=== PATIENT | female | born 1995 | race Caucasian/White ===

== ENCOUNTER 2018-04-29 07:46 | Emergency (ER) | payer MEDICAID, OTHER ==
[2018-04-29 08:21] LABS: APPEARANCE,URINE Turbid (CLEAR); BILIRUBIN,URINE Small (NEGATIVE); COLOR,URINE Red (YELLOW); GLUCOSE, URINE (UA) Negative (NEGATIVE); KETONES,URINE Negative (NEGATIVE); LEUKOCYTE ESTERASE ,URINE Large (NEGATIVE); NITRATE,URINE Positive (NEGATIVE); OCCULT BLOOD,URINE Moderate (NEGATIVE); PH,URINE 6.5 (5.0-8.0); PROTEIN,URINE POS 2+ (NEGATIVE); UROBILINOGEN,URINE 0.2 mg/dL (0.2-1.0)
[2018-04-29 08:30] LABS: HCG,QUAL RESULT NEGATIVE (NEGATIVE)
[2018-04-29 08:33] LABS: BACTERIA,URINE Rare /HPF (None Seen); RBC,URINE TNTC /HPF (0-1); SQUAMOUS EPITHELIAL CELL,UR Few /HPF (0-2)
[2018-04-29 08:34] LABS: BASOPHILS % (AUTO) 0.5 % (0.0-5.0); EOSINOPHILS % (AUTO) 0.9 % (0.0-8.0); HEMATOCRIT 40.7 % (36-48); LYMPHOCYTES % (AUTO) 42.7 % (21.0-51.0); MEAN CORPUSCULAR HEMOGLOBIN 32.5 pg (27.0-33.0); MEAN CORPUSCULAR HGB CONC 35.1 g/dL (32.0-36.0); MEAN CORPUSCULAR VOLUME 92.6 fL (79-99); MONOCYTES % (AUTO) 7.3 % (3.0-13.0); NEUTROPHILS % (AUTO) 48.6 % (40.0-77.0); PLATELET COUNT (AUTO) 277 K/uL (130-400); RED CELL DISTRIBUTION WIDTH 13.2 % (11.0-15.5); WHITE BLOOD COUNT (AUTO) 4.8 K/uL (4.8-10.8)
[2018-04-29] MEDS ORDERED: KETOROLAC TROMETHAMINE 30MG/ML ONE (08:44)
[2018-04-29 08:45] LABS: CREATININE 0.8 mg/dL (0.5-1.5); POTASSIUM 3.4 mmol/L (3.5-5.1)
[2018-04-29 08:49] LABS: ALBUMIN 4.3 g/dL (3.5-5.0); BILIRUBIN,TOTAL 0.8 mg/dL (0.2-1.0); TOTAL PROTEIN, SERUM 7.8 g/dL (6.0-8.3)
== END 2018-04-29 10:24 | disposition home or self-care (01) ==
LOC: EDH 07:46
DX: O72.1 Other immediate postpartum hemorrhage (principal); M54.5 Low back pain; R10.2 Pelvic and perineal pain
CPT/HCPCS: 36415; 76856; 80053; 81001; 81025; 85025; 87486; 87797; 93970; 96374; 99285; J1885

== ENCOUNTER 2020-03-04 13:08 | Emergency (ER) | payer OTHER ==
[2020-03-04 14:10] LABS: APPEARANCE,URINE TURBID (CLEAR); BILIRUBIN,URINE NEGATIVE (NEGATIVE); COLOR,URINE YELLOW (YELLOW); GLUCOSE, URINE (UA) NEGATIVE (NEGATIVE); KETONES,URINE NEGATIVE (NEGATIVE); LEUKOCYTE ESTERASE ,URINE LARGE (NEGATIVE); NITRATE,URINE NEGATIVE (NEGATIVE); OCCULT BLOOD,URINE MODERATE (NEGATIVE); PH,URINE 6.5 (5.0-8.0); PROTEIN,URINE TRACE mg/dL (NEGATIVE); UROBILINOGEN,URINE 0.2 mg/dL (0.2-1.0)
[2020-03-04 14:25] LABS: BACTERIA,URINE Moderate /HPF (None Seen); MUCUS,URINE Few LPF (None Seen); SQUAMOUS EPITHELIAL CELL,UR Few /HPF (0-2)
[2020-03-04] MEDS ORDERED: CEFTRIAXONE SODIUM 1 GM ONE (14:53)
[2020-03-04] MEDS ORDERED: LIDOCAINE HCL-MPF 1% 2ML VIAL ONE (14:54)
== END 2020-03-04 15:24 | disposition home or self-care (01) ==
LOC: EDH 13:08
DX: N39.0 Urinary tract infection, site not specified (principal)
CPT/HCPCS: 81001; 81025; 87088; 96372; 99283; J0696; J3490

== ENCOUNTER 2024-12-31 07:14 | Emergency (ER) | payer MEDICAID ==
[~2024-12-31] VITALS: Ht 160 cm; Wt 67.1 kg
[~2024-12-31 07:14] MED LIST: BENZ200C53 PO
[2024-12-31] MEDS: ORPHENADRINE 60MG/2ML IM ONE (08:00)
[2024-12-31] MEDS: ketOROlac 30MG VIAL (30MG/ML) IM ONE (08:00)
--- NOTE | 2024-12-31 08:25 | HMCIMG ---
Exam Type: CERV SPINE 2-3VWS Clinical Information: pain Comparison: None FINDINGS: C1 through the top of T1 are seen on the lateral view. The prevertebral soft tissues are normal. The vertebral bodies are well-aligned and without fracture. The disc spaces are normal as is the distance between the arch of C1 and the dens. The spinolaminar line is smooth and the spinous process tips intact. The AP view of the cervical spine is unremarkable. IMPRESSION: NEGATIVE CERVICAL SPINE SERIES.
--- NOTE | 2024-12-31 08:28 | ERN ---
General Chief Complaint: Neck Pain Stated Complaint: LEFT SIDE NECK PAIN Time Seen by MD: 07:15 Source: patient History of Present Illness Initial Comments Patient is a 29-year-old female coming in to be evaluated for left-sided neck pain. Patient states he woke up with this intense left-sided neck pain. She states that the pain is exacerbated with rotation of the head. Allergies: Coded Allergies: morphine (Unverified Allergy, Severe, 12/31/24) HHIVES No Known Allergies (Verified Allergy, Unknown, 04/23/20) Home Meds Active Scripts Benzonatate (Benzonatate) 200 Mg Capsule, 200 MG PO every 6 hours for cough for 7 Days, #40 CAP Prov:CYRIL STEELE [employer]STER 04/03/22 Past Medical History Past Medical History: Gallstones Past Surgical History: BTL ROS Dictation CONSTITUTIONAL: No chills, no fever, no weakness, no diaphoresis, no malaise. HEAD/FACE: No signs of trauma. EENT: No eye pain, no blurred vision, no tearing, no double vision, no ear pain, no ear discharge, no nose pain, no nasal congestion, no throat pain, no throat swelling, no mouth pain. RESPIRATORY: No cough, no orthopnea, no SOB, no stridor, no wheezing. CARDIOVASCULAR: No chest pain, no edema, no palpitations, no syncope. GASTROINTESTINAL/ABDOMINAL: No abdominal pain, no constipation, no diarrhea, no nausea, no vomiting. GENITOURINARY: No abnormal discharge, no dysuria, no frequent urination, no hematuria. No complaints of pain in the genitals. MUSCULOSKELETAL: No back pain, no gout, joint pain, no joint swelling, muscle pain, no muscle stiffness, no neck pain. INTEGUMENTARY: No change in color, no change in hair/nails, no dryness, no lesion, no lumps, no rash. NEUROLOGICAL/PSYCH: No anxiety, not depressed, no emotional problem, no headache, no numbness, no pre-existing deficit, no history of seizures, no tremors, no weakness. HEMATOLOGIC/LYMPHATIC: Not anemic, no history of blood clots, no apparent bleeding, no bruising, glands not swollen. All Systems Negative, Except as Noted. Physical Exam Physical Exam Dictation VITAL SIGNS: Reviewed. GENERAL APPEARANCE: Alert, oriented x3, no acute distress, obese. HEAD AND FACE: Non-traumatic. EYES: PERRL, pink conjunctivas, eyelid no trauma, anterior chamber clear. EARS: Pinnas intact and no signs of trauma or erythema. Ear canals clear and no discharge. TMs no erythema. NOSE: No discharge, no bleeding. OROPHARYNX: Mouth normal, teeth no caries, tongue pink. Pharynx clear, no erythema. Tonsils no exudates, no abscesses noted. Mucous membrane moist. NECK: Supple, non-tender, no thyromegaly, no masses, no JVD, no bruits. BREAST: Deferred. CHEST: No tenderness, no crepitus, no paradoxical movement, no retractions. LUNGS: Clear, well-ventilated, symmetric, no rales, no wheezing, no rhonchi, no stridor, good breath sounds bilaterally. HEART: Regular rate, regular rhythm, no murmur, no gallops. VASCULAR: No peripheral edema. ABDOMEN: Soft, positive bowel sounds, nondistended, no guarding, nontender, no rebound, no masses no hepatomegaly, no splenomegaly, no Connell's sign, no hernias. RECTAL: Deferred. GENITAL: Deferred. NEUROLOGICAL: Normal speech, gross motor function intact, gross sensory function intact. MUSCULOSKELETAL: Neck nontender, full range of motion, back nontender, full range of motion. EXTREMITIES: Nontender, full range of motion. Left trapezius muscle tenderness, SKIN: Color pink, dry, no turgor, no rash, no lacerations, no abrasions, no contusions. LYMPHATICS: Deferred. Results Laboratory and Microbiology Lab and Micro Result Laboratory Tests Test 12/31/24 07:51 Urine HCG, Qualitative NEGATIVE (NEGATIVE) Labs Reviewed?: Yes EKG/XRAY/US/CT/MRI X-RAY Comment [place] [id number] [place] [address] [id number] IMAGING REPORT Signed PATIENT: TRESSA MARTINEZ MR#: [id number] : 1995 SEX: F AGE: 29 LOCATION: [facility] ORDER 7 STATUS: REG REPORT#: [id number] SERVICE 6 REASON: pain ORDERING PHYSICIAN: CAROL BISWAS MD PROCEDURE: CERV 2 3VW - CERV SPINE 2-3VWS Exam Type: CERV SPINE 2-3VWS Clinical Information: pain Comparison: None FINDINGS: C1 through the top of T1 are seen on the lateral view. The prevertebral soft tissues are normal. The vertebral bodies are well-aligned and without fracture. The disc spaces are normal as is the distance between the arch of C1 and the dens. The spinolaminar line is smooth and the spinous process tips intact. The AP view of the cervical spine is unremarkable. IMPRESSION: NEGATIVE CERVICAL SPINE SERIES. DICTATED BY: JOBY WEBBER MD DATE: 12/31/24822 ELECTRONICALLY SIGNED BY: JOBY WEBBER MD DATE: 12/31/24824 [facility] MDM: Differential diagnosis: Torticollis, left side muscle spasms, Rationale: Tests considered and ordered secondary to shared decision making include: Previous outside records reviewed: Old ER visits. Risk of complication and/or morbidity or mortality of patient management: None Medications-Per medication reconciliation Patient is a 29-year-old female coming in to be evaluated for left-sided neck pain. Patient states that she woke up like this. X-ray did not disclose acute findings. Patient we will be discharged in stable condition with a diagnosis of torticollis. ED Course Orders Procedure Category Date Status Time ,Urine Test LAB 12/31/24 Complete 07:17 Orphenadrine Citrate PHA 12/31/24 Complete (Norflex) 07:30 Ketorolac PHA 12/31/24 Complete Tromethamine 30mg/Ml 07:30 Cerv Spine 2-3vws RAD 12/31/24 Resulted 07:17 Current Medications Medications (Trade) Dose Ordered Sig/Karl Route PRN Reason Start Time Stop Time Status Last Admin Dose Admin Ketorolac Tromethamine (toRADol) 30 mg ONCE ONCE IM 12/31/24 07:30 12/31/24 07:31 DC 12/31/24 08:00 Orphenadrine Citrate (Norflex) 60 mg ONCE ONCE IM 12/31/24 07:30 12/31/24 07:31 DC 12/31/24 08:00 Vital Signs Date Time Temp Pulse Resp B/P (MAP) Pulse Ox O2 Delivery O2 Flow Rate FiO2 12/31/24 07:15 98.4 80 16 132/88 100 Room Air* 0 21 6/10/25 07:15 98.4 80 16 132/88 100 Room Air 0 DX & DISP Disposition: Discharge Departure Impression: Primary Impression: Torticollis, acute Condition: Stable Scripts Naproxen (Naproxen) 500 Mg Tablet 1 TAB PO BID for pain for 7 Days, #14 TAB 0 Refills Prov: CAROL BISWAS MD 12/31/24 Methocarbamol (Robaxin) 750 Mg Tab 1 TAB PO BID for 5 Days, #10 TAB 0 Refills Prov: CAROL BISWAS MD 12/31/24 Additional Instructions: FOLLOW-UP WITH PRIMARY CARE PROVIDER IN 1 TO 2 DAYS. TAKE MEDICATIONS DIRECTED HERE IN THE EMERGENCY ROOM. OKAY TO CONTINUE HOME MEDICATIONS UNLESS OTHERWISE DISCUSSED DURING YOUR VISIT IN THE EMERGENCY ROOM TODAY. RETURN TO YOUR NEAREST EMERGENCY ROOM IF SYMPTOMS WORSEN OR IF THERE IS NO IMPROVEMENT. CALL 911 IF YOU NEED IMMEDIATE ASSISTANCE. TAKE TYLENOL [id number] NEEDED AND IF NO CONTRAINDICATIONS ARE PRESENT. INCREASE ORAL HYDRATION. A WOUND CULTURE OR URINE CULTURE WAS ORDERED HERE IN THE EMERGENCY ROOM DEPARTMENT PLEASE FOLLOW-UP WITH PRIMARY CARE PROVIDER AND ADVISE THEM TO GET REPORTS FROM OUR FACILITY. IF YOU HAD ANY MACEY WRAP/SPLINTS THAT WERE APPLIED HERE, PLEASE DO NOT REMOVE THEM UNTIL YOU SEE YOUR PRIMARY CARE OR SPECIALTY. Referrals: Referrals: SELF,REFERRAL (PCP) ROBERTO MATTHEW MD Time of Disposition: 08:29 CAROL BISWAS MD Dec 31, 2024 08:28
[2024-12-31] MEDS ORDERED: NAPR-1194 PO (08:30)
[2024-12-31] MEDS ORDERED: METH-662 PO (08:30)
[2024-12-31 08:34] VITALS: BP 131/85; PULSE 84; RESP 16; TEMP 98.2; O2SAT 100
== END 2024-12-31 08:43 | disposition home or self-care (01) ==
LOC: EDH 07:14
DX: M43.6 Torticollis (principal); Z88.5 Allergy status to narcotic agent; Z98.51 Tubal ligation status
CPT/HCPCS: 99284; 81025; 72040; 96372 ×2; J1885; J2360